=== PATIENT | female | born 1975 | race American Indian/Alaskan Native ===

== ENCOUNTER 2017-03-03 11:06 | Emergency (ER) | payer OTHER ==
[2017-03-03] MEDS ORDERED: TENORMIN PO ONE (11:37)
[2017-03-03] MEDS ORDERED: HCTZ PO ONE (11:37)
[2017-03-03] MEDS ORDERED: ZESTRIL PO ONE (11:37)
--- NOTE | 2017-03-03 12:10 | Emergency Department Report ---
Entered by LARRY ESPINOZA, acting as scribe for SHERRI HEARN PA. Chief Complaint: Sore Throat Stated Complaint: SORE THROAT,CHILLS,BODY ACHES Time Seen by Provider: 03/03/17 11:26 - HPI History of Present Illness: Pt c/o a sore throat for 6 days. Rates pain an 8/10 in severity. Took DayQuil, NyQuil, and [place] day and night with no relief. Reports cough. Reports nausea. Reports chills and myalgias. Denies vomiting. Pt states she had facial pain and headache 4 days ago. Notes her tonsils was swollen 3 weeks ago. PMHx of asthma, diabetes (anxiety induced), HPV, and HTN Notes non-compliancy to HTN medication for 2 weeks. BP is currently 171/112 in triage. PCP is at [facility] - ROS Review of Systems: All systems are negative unless stated in the HPI above. - Exam Vital Signs: Vital Signs 03/03/17 11:13 Temperature 98.1 F Pulse Rate 85 Respiratory 20 Rate Blood Pressure 171/112 O2 Sat by Pulse 98 Oximetry Physical Exam: GENERAL: Patient is alert and oriented x 3. No apparent distress, normal gait, atraumatic. MOUTH:Mouth is well hydrated and without lesions. Mucous membranes are moist. Uvula midline. Tongue not elevated. Posterior pharynx clear, no exudate or lesions. Tonsils are not erythematous or swollen. Patent airway. NECK: Supple. Non edematous, no carotid bruits. No lymphadenopathy or thyromegaly. LUNGS: Symmetrical with respiration. No wheezing, rales or crackles, CTAB. HEART: Regular rate and rhythm with normal S1/S2 present. No murmurs, rubs, or gallops. MSE screening note: Focused history and physical exam performed. Due to findings the following was ordered: ED Medical Decision Making - Medical Decision Making Patient seen by provider in triage area. Blood work sent in for patient. ED Disposition for MSE Condition: Stable This documentation as recorded by the scribe,LARRY ESPINOZA,accurately reflects the service I personally performed and the decisions made by me, SHERRI HEARN PA.
[2017-03-03] MEDS ORDERED: LIDOCAINE VISCOUS 2% PO ONE (21:28)
[2017-03-03] MEDS ORDERED: TYLENOL PO ONE (21:29)
--- NOTE | 2017-03-03 23:01 | Emergency Department Report ---
HPI - General Chief Complaint: Sore Throat Time Seen by Provider: 03/03/17 11:37 - HPI HPI: The patient's 41-year-old female presents for evaluation of pain. The patient reports throat pain for the past 6 days, burning and scratchy in quality, moderate to severe, exacerbated with swallowing. She also reports associated nonproductive cough and runny nose. The patient denies dyspnea, neck stiffness , dysphagia, stridor, drooling, difficulty tolerating secretions, dysphonia, hoarseness of voice, abdominal pain. ED Past Medical Hx - Past Medical History Previous Medical History?: Yes Hx Hypertension: Yes Hx Diabetes: Yes Hx Asthma: Yes (anxiety induced) Additional medical history: HPV - Surgical History Past Surgical History?: Yes Additional Surgical History: 3 c-sections; ; umbilical hernia repair - Social History Smoking Status: Former Smoker Substance Use Type: Alcohol, Prescribed - Medications Home Medications: Home Medications Medication Instructions Recorded Confirmed Last Taken Type Acetaminophen/Codeine 1 tab PO Q6H PRN #16 tab 10/31/14 08/12/15 Unknown Rx [Acetaminophen-Codeine #3 TAB] Fluconazole [Diflucan] 150 mg PO ONCE #1 tablet 10/31/14 08/12/15 Unknown Rx Promethazine Dm [Phenergan Dm 5 ml PO Q6H PRN #120 ml 10/31/14 08/12/15 Unknown Rx 6.25/15 mg 5 ml] Sulfamethoxazole/Trimethoprim 1 each PO Q12H #20 tablet 10/31/14 08/12/15 Unknown Rx [Bactrim Ds] Albuterol Sulfate [Albuterol 0.63% 0.63 mg IH Q4H PRN #25 neb 08/01/15 08/12/15 Unknown Rx NEBS] Albuterol Sulfate [Ventolin HFA] 2 puff IH Q4H PRN #1 hfa.aer.ad 08/01/15 Unknown Rx Ciprofloxacin HCl [Ciprofloxacin 500 mg PO Q12H #14 tab 08/01/15 08/12/15 Unknown Rx TAB] Butalb/Acetaminophen/Caffeine 1 cap PO Q6HR PRN #14 cap 08/12/15 Unknown Rx [Fioricet 50-300-40 mg CAP] Amoxicillin/K Clav Tab [Augmentin 1 tab PO BID #10 tab 05/29/17 Unknown Rx 875 mg] Benzonatate [Tessalon Perles] 100 mg PO Q8HR #14 capsule 03/03/17 Unknown Rx Phenylephrine/Dm/Acetaminop/GG 20 ml PO Q4HR PRN #180 liquid 03/03/17 Unknown Rx [Mucinex Itvd-Ndl-Ruvfzymrqf Lq] ED Review of Systems ROS: Stated complaint: SORE THROAT,CHILLS,BODY ACHES Other details as noted in HPI Constitutional: denies: fever ENT: reports throat or neck pain Respiratory: reports cough denies: shortness of breath Cardiovascular: denies: chest pain Endocrine: denies unexplained weight loss or gain Gastrointestinal: denies: abdominal pain, nausea Genitourinary: denies: dysuria Musculoskeletal: denies: leg swelling Skin: denies: rash Neurological: denies: headache Hematological/Lymphatic: denies: easy bleeding or easy bruising Psych: denies sadness or hopelessness Physical Exam - Physical Exam Vital Signs: Vital Signs 03/03/17 03/03/17 03/03/17 11:13 11:57 11:58 Temperature 98.1 F Pulse Rate 85 88 85 Respiratory 20 Rate Blood Pressure 171/112 171/112 171/112 Blood Pressure [Right] O2 Sat by Pulse 98 Oximetry 03/03/17 03/03/17 16:10 17:40 Temperature 98.2 F Pulse Rate 68 65 Respiratory 18 18 Rate Blood Pressure 177/111 Blood Pressure 177/106 [Right] O2 Sat by Pulse 99 98 Oximetry Physical Exam: General: well-nourished, well-developed, no acute distress Head: Normocephalic, atraumatic Eyes: normal sclera ENT: Mild tonsillar erythema present, cobblestoning of the posterior oropharynx present, no tonsillar swelling, exudates, or deviation, no uvula or soft palate deviation, no bulging of the lateral oropharyngeal knox, Mucous membranes are pink and moist Neck: trachea midline, neck supple, No neck stiffness, no cervical adenopathy Respiratory: Breath sounds equal bilaterally, no wheezing, rales, or rhonchi Cardio: S1 and S2 present, no murmurs, rubs, gallops, capillary refill is brisk Abdomen: Normoactive bowel sounds, soft abdomen, no rigidity, no guarding or rebound tenderness Musc: No pitting edema Skin: No rash Neuro: no facial drooping, normal speech Psych: Normal affect ED Course Vital Signs 03/03/17 03/03/17 03/03/17 11:13 11:57 11:58 Temperature 98.1 F Pulse Rate 85 88 85 Respiratory 20 Rate Blood Pressure 171/112 171/112 171/112 Blood Pressure [Right] O2 Sat by Pulse 98 Oximetry 03/03/17 03/03/17 16:10 17:40 Temperature 98.2 F Pulse Rate 68 65 Respiratory 18 18 Rate Blood Pressure 177/111 Blood Pressure 177/106 [Right] O2 Sat by Pulse 99 98 Oximetry ED Medical Decision Making - Medical Decision Making The patient was seen and examined by myself. The patient is placed on a alarm security or surveillance monitor and continuous pulse ox. On initial evaluation, the patient was found to be in no distress. Evaluation orders were placed. The patient is given viscous lidocaine and Motrin for her pain. Rapid strep test is negative. The patient was reevaluated and reported that their symptoms were markedly improved. The patient is stable for discharge with outpatient follow-up. The patient is given follow-up and return instructions. The patient expressed understanding and agreed with the plan. The patient is discharged in stable condition. Critical care attestation.: If time is entered above; I have spent that time in minutes in the direct care of this critically ill patient, excluding procedure time. ED Disposition Clinical Impression: Acute pharyngitis, unspecified, Upper respiratory infection, acute, Acute viral syndrome Disposition: DISCHARGED TO HOME OR SELFCARE Is pt being admited?: No Does the pt Need Aspirin: No Condition: Stable Instructions: Pharyngitis (ED), Hypertension (ED) Prescriptions: Amoxicillin/K Clav Tab [Augmentin 875 mg] 1 tab PO BID #10 tab Benzonatate [Tessalon Perles] 100 mg PO Q8HR #14 capsule Phenylephrine/Dm/Acetaminop/GG [Mucinex Aliy-Grr-Imslakuiyl Lq] 20 ml PO Q4HR PRN #180 liquid PRN Reason: cough and sore throat Referrals: PRIMARY CARE, [Primary Care Provider] - 3-5 Days Time of Disposition: 22:53
[2017-03-03 23:15] VITALS: BP 152/92
== END 2017-03-03 23:13 | disposition home or self-care (01) ==
LOC: ED 11:06
DX: J06.9 Acute upper respiratory infection, unspecified (principal); J02.9 Acute pharyngitis, unspecified; B34.9 Viral infection, unspecified; I10 Essential (primary) hypertension; E11.9 Type 2 diabetes mellitus without complications; J45.909 Unspecified asthma, uncomplicated; Z87.891 Personal history of nicotine dependence
CPT/HCPCS: 87116; 87430; 99283

== ENCOUNTER 2017-05-05 13:22 | Emergency (ER) | payer OTHER ==
--- NOTE | 2017-05-05 14:59 | Emergency Department Report ---
Entered by SACHA DUBON, acting as scribe for JARRELL KRISHNAN NP. Chief Complaint: Neck Pain/Injury Stated Complaint: LT SIDE NECK/ARM PAIN Time Seen by Provider: 05/05/17 14:49 - HPI History of Present Illness: 41 y/o female with Hx of HTN, asthma and DM, presents with 8/10, constant, achy left sided neck pain that radiates down left arm that started 2 days ago. Sx include chest pain worsened by movement and SOB but pt denies cough. - ROS Review of Systems: +left side neck pain +SOB +chest pain -cough - Exam Vital Signs: Vital Signs 05/05/17 14:49 Temperature 97.9 F Pulse Rate 67 Respiratory 18 Rate Blood Pressure 181/108 O2 Sat by Pulse 100 Oximetry Physical Exam: obese pt looks well, non-toxic. chest wall ttp MSE screening note: Focused history and physical exam performed. Due to findings the following was ordered: ekg, xr, labs ED Disposition for MSE Condition: Stable This documentation as recorded by the scribe,SACHA DUBON,accurately reflects the service I personally performed and the decisions made by EULOGIO yoon TRACY M, NP.
[2017-05-05 15:22] LABS: Basophils % (Auto) 0.7 % (0.0-1.8); Eosinophils % (Auto) 1.7 % (0.0-4.3); Hematocrit 39.2 % (30.3-42.9); Hemoglobin 12.5 gm/dl (10.1-14.3); Mean Corpuscular HGB Conc 32 % (30-34); Mean Corpuscular Hemoglobin 27 pg (28-32); Mean Corpuscular Volume 86 fl (79-97); Platelet Count 266 K/mm3 (140-440); Red Blood Count 4.58 M/mm3 (3.65-5.03); Red Cell Distribution Width 13.7 % (13.2-15.2); White Blood Count 3.2 K/mm3 (4.5-11.0)
[2017-05-05 16:56] LABS: Bilirubin,Urine NEG (Negative); Blood,Urine NEG (Negative); Ketones,Urine NEG (Negative); Leukocyte Esterase,Urine NEG (Negative); Mucus,Urine FEW /HPF; Nitrite,Urine NEG (Negative); Protein,Urine <15 mg/dL mg/dL (Negative); Urobilinogen,Urine < 2.0 mg/dL (<2.0)
[2017-05-05 17:01] LABS: RBC,Urine < 1.0 /HPF (0.0-6.0); WBC,Urine < 1.0 /HPF (0.0-6.0)
[2017-05-05 17:34] LABS: Creatine Kinase 71 units/L (30-135)
[2017-05-05 17:35] LABS: Alanine Aminotransferase 10 units/L (7-56); Albumin 4.2 g/dL (3.9-5); Albumin/Globulin Ratio 1.1 %; Alkaline Phosphatase 69 units/L (35-129); Anion Gap 21 mmol/L; BUN/Creatinine Ratio 9.09; Blood Urea Nitrogen 10 mg/dL (7-17); Calcium 9.3 mg/dL (8.4-10.2); Carbon Dioxide 25 mmol/L (22-30); Chloride 97.2 mmol/L (98-107); Glucose 86 mg/dL (65-100); Potassium 3.8 mmol/L (3.6-5.0); Sodium 139 mmol/L (137-145); Total Protein 7.9 g/dL (6.3-8.2)
[2017-05-05] MEDS ORDERED: TYLENOL PO ONE (22:41)
[2017-05-05] MEDS ORDERED: TYLENOL ONE (22:41)
--- NOTE | 2017-05-05 23:57 | Emergency Department Report ---
HPI - General Chief Complaint: Neck Pain/Injury Time Seen by Provider: 05/05/17 22:49 - HPI HPI: The patient is a 41-year-old female presents for evaluation of neck and shoulder pain. The patient reports left-sided neck and shoulder pain for the past 2 days, 8/10 in severity, sharp in quality, radiating from the left lateral leg to the right medial shoulder, worsened with turning of the neck or movement of the left arm at the shoulder joint. The patient denies trauma to the neck or left shoulder. ED Past Medical Hx - Past Medical History Hx Hypertension: Yes Hx Diabetes: Yes Hx Asthma: Yes (anxiety induced) Additional medical history: HPV - Surgical History Additional Surgical History: 3 c-sections; ; umbilical hernia repair - Social History Smoking Status: Never Smoker Substance Use Type: None - Medications Home Medications: Home Medications Medication Instructions Recorded Confirmed Last Taken Type Acetaminophen/Codeine 1 tab PO Q6H PRN #16 tab 10/31/14 08/12/15 Unknown Rx [Acetaminophen-Codeine #3 TAB] Fluconazole [Diflucan] 150 mg PO ONCE #1 tablet 10/31/14 08/12/15 Unknown Rx Promethazine Dm [Phenergan Dm 5 ml PO Q6H PRN #120 ml 10/31/14 08/12/15 Unknown Rx 6.25/15 mg 5 ml] Sulfamethoxazole/Trimethoprim 1 each PO Q12H #20 tablet 10/31/14 08/12/15 Unknown Rx [Bactrim Ds] Albuterol Sulfate [Albuterol 0.63% 0.63 mg IH Q4H PRN #25 neb 08/01/15 08/12/15 Unknown Rx NEBS] Albuterol Sulfate [Ventolin HFA] 2 puff IH Q4H PRN #1 hfa.aer.ad 08/01/15 Unknown Rx Ciprofloxacin HCl [Ciprofloxacin 500 mg PO Q12H #14 tab 08/01/15 08/12/15 Unknown Rx TAB] Butalb/Acetaminophen/Caffeine 1 cap PO Q6HR PRN #14 cap 08/12/15 Unknown Rx [Fioricet 50-300-40 mg CAP] Amoxicillin/K Clav Tab [Augmentin 1 tab PO BID #10 tab 03/03/17 Unknown Rx 875 mg] Benzonatate [Tessalon Perles] 100 mg PO Q8HR #14 capsule 03/03/17 Unknown Rx Phenylephrine/Dm/Acetaminop/GG 20 ml PO Q4HR PRN #180 liquid 03/03/17 Unknown Rx [Mucinex Ehav-Uff-Fdhsrutvta Lq] Cyclobenzaprine HCl [Flexeril 5 MG 5 mg PO Q8HR PRN #15 tab 05/06/17 Unknown Rx TAB] traMADol [Ultram 50 MG tab] 50 mg PO Q6HR PRN #15 tablet 05/06/17 Unknown Rx ED Review of Systems ROS: Stated complaint: LT SIDE NECK/ARM PAIN Other details as noted in HPI Constitutional: denies: fever ENT: denies: throat pain; reports neck pain Respiratory: denies: cough, shortness of breath Cardiovascular: denies: chest pain Endocrine: denies unexplained weight loss or gain Gastrointestinal: denies: abdominal pain, nausea Genitourinary: denies: dysuria Musculoskeletal: reports shoulder pian denies: leg swelling Skin: denies: rash Neurological: denies: headache Hematological/Lymphatic: denies: easy bleeding or easy bruising Psych: denies sadness or hopelessness Physical Exam - Physical Exam Vital Signs: Vital Signs 05/05/17 05/05/17 14:49 22:30 Temperature 97.9 F 98.3 F Pulse Rate 67 64 Respiratory 18 18 Rate Blood Pressure 181/108 170/111 O2 Sat by Pulse 100 100 Oximetry Physical Exam: General: well-nourished, well-developed, no acute distress Head: Normocephalic, atraumatic Eyes: normal sclera ENT: Mucous membranes are pink and moist Neck: Left sternocleidomastoid tenderness to palpation present, pain elicited with turning of the neck to the left, Left trapezius tenderness to palpation, trachea midline, neck supple, No neck stiffness, no midline cervical spinous process tenderness to palpation Respiratory: Breath sounds equal bilaterally, no wheezing, rales, or rhonchi Cardio: S1 and S2 present, no murmurs, rubs, gallops, capillary refill is brisk Abdomen: Normoactive bowel sounds, soft abdomen, no rigidity, no guarding or rebound tenderness Musc: No pitting edema Skin: No rash Neuro: no facial drooping, normal speech Psych: Normal affect ED Course Vital Signs 05/05/17 05/05/17 14:49 22:30 Temperature 97.9 F 98.3 F Pulse Rate 67 64 Respiratory 18 18 Rate Blood Pressure 181/108 170/111 O2 Sat by Pulse 100 100 Oximetry ED Medical Decision Making - Lab Data Result diagrams: 05/05/17 15:13 05/05/17 15:13 - Medical Decision Making The patient was seen and examined by myself. The patient is placed on a night monitor and continuous pulse ox. On initial evaluation, the patient was found to be in no distress. Evaluation orders were placed. The patient is given IM dose of Toradol for pain. The patient was reevaluated and reported that their symptoms were markedly improved. The patient is stable for discharge with outpatient follow-up. The patient is given follow-up and return instructions. The patient expressed understanding and agreed with the plan. The patient is discharged in stable condition. Critical care attestation.: If time is entered above; I have spent that time in minutes in the direct care of this critically ill patient, excluding procedure time. ED Disposition Clinical Impression: Acute neck pain Neck muscle strain Qualifiers: Encounter type: initial encounter Qualified Code(s): S16.1XXA - Strain of muscle, fascia and tendon at neck level, initial encounter Shoulder pain, acute Qualifiers: Laterality: left Qualified Code(s): M25.512 - Pain in left shoulder Disposition: DC-01 TO HOME OR SELFCARE Is pt being admited?: No Does the pt Need Aspirin: No Condition: Stable Instructions: Muscle Strain (ED), Spasmodic Torticollis (ED), Musculoskeletal Pain (ED) Referrals: PRIMARY CARE, [Primary Care Provider] - 3-5 Days Time of Disposition: 23:47
[2017-05-06 00:42] VITALS: BP 152/99
[2017-05-06] MEDS ORDERED: BENADRYL PO NR (01:00)
[2017-05-06] MEDS: TORADOL IM ONE (01:04)
--- NOTE | 2017-05-06 08:38 | XRay Report ---
CHEST 2 VIEWS INDICATION: Chest pain. COMPARISON: 11/25/2012. FINDINGS: Frontal and lateral chest radiographs demonstrate poorer inspiration with mild exaggerated cardiomediastinal silhouette and somewhat crowded lung markings centrally and toward the bases. No pleural effusions or CHF. Mild thoracic spondylosis. CONCLUSION: Hypoinflation without definite acute disease, as described. Please correlate. Thank you for the opportunity to participate in this patient's care.
== END 2017-05-06 02:28 | disposition home or self-care (01) ==
LOC: ED 13:22
DX: S16.1XXA Strain of muscle, fascia and tendon at neck level, initial encounter (principal); M54.2 Cervicalgia; M25.512 Pain in left shoulder; I10 Essential (primary) hypertension; E11.9 Type 2 diabetes mellitus without complications; X58.XXXA Exposure to other specified factors, initial encounter; Y93.9 Activity, unspecified; Y92.9 Unspecified place or not applicable; Y99.9 Unspecified external cause status
CPT/HCPCS: 36415; 71020; 80053; 81001; 82550; 84484; 84703; 85025; 93005; 93010; 96372; 99284; J1885

== ENCOUNTER 2017-11-25 12:42 | Outpatient (CLI) | payer BC ==
--- NOTE | 2017-11-26 10:53 | Mammography Report ---
BILATERAL DIGITAL SCREENING MAMMOGRAM with CAD: 11/25/17 12:42:00 CLINICAL: Routine screening. COMPARISON:None available. FINDINGS: The breasts are almost entirely fatty.A few bilateral benign calcifications. No mass, architectural distortion or suspicious calcifications. IMPRESSION: No mammographic evidence of malignancy. BI-RADS CATEGORY: 2 -- Benign RECOMMENDATION: Routine mammographic screening in one year. COMMENT: Patient follow-up letters are generated by our [employer] application.
== END 2017-11-25 12:43 | disposition home or self-care (01) ==
LOC: MAMMO 12:42
PROVIDERS: ATTEND Internal Medicine
DX: Z12.31 Encounter for screening mammogram for malignant neoplasm of breast (principal)
CPT/HCPCS: 77067

== ENCOUNTER 2018-02-28 16:34 | Emergency (ER) | payer BC ==
[2018-02-28 16:45] VITALS: BP 178/115
== END 2018-02-28 22:30 | disposition left against medical advice (07) ==
LOC: ED 16:34
DX: M79.672 Pain in left foot (principal); F41.9 Anxiety disorder, unspecified; E11.9 Type 2 diabetes mellitus without complications; I10 Essential (primary) hypertension; Z53.21 Procedure and treatment not carried out due to patient leaving prior to being seen by health care provider

== ENCOUNTER 2018-03-01 10:40 | Emergency (ER) | payer BC ==
--- NOTE | 2018-03-01 12:30 | Emergency Department Report ---
Blank Doc - Documentation Documentation: 42yo female came in with left foot and ankle pain after hitting a chair P: x ray of left foot and ankle
[2018-03-01] MEDS ORDERED: NORCO 7.5/325 PO ONE (12:31)
[2018-03-01] MEDS ORDERED: CATAPRES PO ONE (12:31)
[2018-03-01] MEDS ORDERED: MOTRIN ONE (12:37)
[2018-03-01] MEDS ORDERED: MOTRIN PO ONE (12:38)
--- NOTE | 2018-03-01 13:14 | Emergency Department Report ---
ED Lower Extremity HPI - General Chief Complaint: Extremity Injury, Lower Stated Complaint: LEFT FOOT TOE PAIN Time Seen by Provider: 03/01/18 12:15 Source: patient Mode of arrival: Ambulatory Limitations: No Limitations - History of Present Illness Initial Comments: This is a 42-year-old female nontoxic, well nourished in appearance, no acute signs of distress presents to the ED with c/o of left ankle pain and swelling x3 days. Patient stated she has been dancing with daughter and accidentally hit her ankle against the car. Patient denies any joint redness, joint swelling, fever, chills, nausea, vomiting, chest pain or shortness breath. Patient denies abnormal or decreased gait. Patient denies any allergies. PMH includes HTN which patient stated missed her medication that past 2 days. Patient stated she is has medication at home and will start tonight again. MD Complaint: ankle injury -: days(s) (3) Injury: Ankle: Left Type of Injury: blunt Place: home Severity: mild Severity scale (0 -10): 8 Improves With: immobilization Worsens With: movement, palpation Associated Symptoms: swelling, able to partially bear weight, ambulatory. denies: snap/pop sensation, numbness, tingling, unable to bear weight - Related Data Previous Rx's Medication Instructions Recorded Last Taken Type Acetaminophen/Codeine 1 tab PO Q6H PRN #16 tab 10/31/14 Unknown Rx [Acetaminophen-Codeine #3 TAB] Fluconazole [Diflucan] 150 mg PO ONCE #1 tablet 10/31/14 Unknown Rx Promethazine Dm [Phenergan Dm 5 ml PO Q6H PRN #120 ml 10/31/14 Unknown Rx 6.25/15 mg 5 ml] Sulfamethoxazole/Trimethoprim 1 each PO Q12H #20 tablet 10/31/14 Unknown Rx [Bactrim Ds] Albuterol Sulfate [Albuterol 0.63% 0.63 mg IH Q4H PRN #25 neb 08/01/15 Unknown Rx NEBS] Albuterol Sulfate [Ventolin HFA] 2 puff IH Q4H PRN #1 hfa.aer.ad 08/01/15 Unknown Rx Ciprofloxacin HCl [Ciprofloxacin 500 mg PO Q12H #14 tab 08/01/15 Unknown Rx TAB] Butalb/Acetaminophen/Caffeine 1 cap PO Q6HR PRN #14 cap 08/12/15 Unknown Rx [Fioricet 50-300-40 mg CAP] Amoxicillin/K Clav Tab [Augmentin 1 tab PO BID #10 tab 03/03/17 Unknown Rx 875 mg] Benzonatate [Tessalon Perles] 100 mg PO Q8HR #14 capsule 03/03/17 Unknown Rx Phenylephrine/Dm/Acetaminop/GG 20 ml PO Q4HR PRN #180 liquid 03/03/17 Unknown Rx [Mucinex Glcv-Yrt-Pfbajjpuyg Lq] Cyclobenzaprine HCl [Flexeril 5 MG 5 mg PO Q8HR PRN #15 tab 05/06/17 Unknown Rx TAB] traMADol [Ultram 50 MG tab] 50 mg PO Q6HR PRN #15 tablet 05/06/17 Unknown Rx Ibuprofen [Motrin] 600 mg PO Q8H PRN #30 tablet 03/01/18 Unknown Rx Allergies Allergy/AdvReac Type Severity Reaction Status Date / Time naproxen Allergy Unknown Verified 03/01/18 10:54 ED Review of Systems ROS: Stated complaint: LEFT FOOT TOE PAIN Other details as noted in HPI Constitutional: denies: chills, fever Eyes: denies: eye pain, eye discharge, vision change ENT: denies: ear pain, throat pain Respiratory: denies: cough, shortness of breath, wheezing Cardiovascular: denies: chest pain, palpitations Endocrine: no symptoms reported Gastrointestinal: denies: abdominal pain, nausea, diarrhea Genitourinary: denies: urgency, dysuria, discharge Musculoskeletal: arthralgia. denies: back pain, joint swelling Skin: denies: rash, lesions Neurological: denies: headache, weakness, paresthesias Psychiatric: denies: anxiety, depression Hematological/Lymphatic: denies: easy bleeding, easy bruising ED Past Medical Hx - Past Medical History Hx Hypertension: Yes Hx Diabetes: Yes Hx Asthma: Yes (anxiety induced) Additional medical history: HPV - Surgical History Additional Surgical History: 3 c-sections; ; umbilical hernia repair - Social History Smoking Status: Never Smoker Substance Use Type: None - Medications Home Medications: Home Medications Medication Instructions Recorded Confirmed Last Taken Type Acetaminophen/Codeine 1 tab PO Q6H PRN #16 tab 10/31/14 08/12/15 Unknown Rx [Acetaminophen-Codeine #3 TAB] Fluconazole [Diflucan] 150 mg PO ONCE #1 tablet 10/31/14 08/12/15 Unknown Rx Promethazine Dm [Phenergan Dm 5 ml PO Q6H PRN #120 ml 10/31/14 08/12/15 Unknown Rx 6.25/15 mg 5 ml] Sulfamethoxazole/Trimethoprim 1 each PO Q12H #20 tablet 10/31/14 08/12/15 Unknown Rx [Bactrim Ds] Albuterol Sulfate [Albuterol 0.63% 0.63 mg IH Q4H PRN #25 neb 08/01/15 08/12/15 Unknown Rx NEBS] Albuterol Sulfate [Ventolin HFA] 2 puff IH Q4H PRN #1 hfa.aer.ad 08/01/15 Unknown Rx Ciprofloxacin HCl [Ciprofloxacin 500 mg PO Q12H #14 tab 08/01/15 08/12/15 Unknown Rx TAB] Butalb/Acetaminophen/Caffeine 1 cap PO Q6HR PRN #14 cap 08/12/15 Unknown Rx [Fioricet 50-300-40 mg CAP] Amoxicillin/K Clav Tab [Augmentin 1 tab PO BID #10 tab 03/03/17 Unknown Rx 875 mg] Benzonatate [Tessalon Perles] 100 mg PO Q8HR #14 capsule 03/03/17 Unknown Rx Phenylephrine/Dm/Acetaminop/GG 20 ml PO Q4HR PRN #180 liquid 03/03/17 Unknown Rx [Mucinex Sdfk-Lfg-Tgtbegaytj Lq] Cyclobenzaprine HCl [Flexeril 5 MG 5 mg PO Q8HR PRN #15 tab 05/06/17 Unknown Rx TAB] traMADol [Ultram 50 MG tab] 50 mg PO Q6HR PRN #15 tablet 05/06/17 Unknown Rx Ibuprofen [Motrin] 600 mg PO Q8H PRN #30 tablet 03/01/18 Unknown Rx ED Physical Exam - General Limitations: No Limitations General appearance: alert, in no apparent distress - Head Head exam: Present: atraumatic, normocephalic - Eye Eye exam: Present: normal appearance Pupils: Present: normal accommodation - ENT ENT exam: Present: normal exam, mucous membranes moist - Neck Neck exam: Present: normal inspection, full ROM. Absent: tenderness, meningismus, lymphadenopathy - Respiratory Respiratory exam: Present: normal lung sounds bilaterally. Absent: respiratory distress, wheezes, rales, rhonchi, stridor, chest wall tenderness, accessory muscle use, decreased breath sounds, prolonged expiratory - Cardiovascular Cardiovascular Exam: Present: regular rate, normal rhythm, normal heart sounds. Absent: bradycardia, tachycardia, irregular rhythm, systolic murmur, diastolic murmur, rubs, gallop - GI/Abdominal GI/Abdominal exam: Present: soft, normal bowel sounds. Absent: distended, tenderness, guarding, rebound, rigid, diminished bowel sounds - Rectal Rectal exam: Present: deferred - Extremities Exam Extremities exam: Present: normal inspection, full ROM, tenderness, normal capillary refill. Absent: pedal edema, joint swelling, calf tenderness - Expanded Lower Extremity Exam Left Hip exam: Present: normal inspection, full ROM. Absent: tenderness, swelling Upper Leg exam: Present: normal inspection, full ROM. Absent: tenderness, swelling Knee exam: Present: normal inspection, full ROM. Absent: tenderness, swelling Lower Leg exam: Present: normal inspection, full ROM. Absent: tenderness, swelling Ankle exam: Present: normal inspection, full ROM, tenderness, swelling. Absent : abrasion, laceration, ecchymosis, deformity, crepidus, dislocation, erythema, anterior draw sign Foot/Toe exam: Present: normal inspection, full ROM. Absent: tenderness, swelling, abrasion, laceration, ecchymosis, deformity, crepidus, dislocation, erythema, amputation, puncture wound, foreign body, calcaneal tenderness, tenderness at base of 5th metatarsal, nail avulsion, subungual hematoma Neuro vascular tendon exam: Present: no vascular compromise. Absent: pulse deficit, abnormal cap refill, motor deficit, sensory deficit, tendon deficit, extremity cold to touch, pallor, abnormal 2-point discrimination, decreased fine /light touch, foot drop, peroneal nerve deficit, significant pain with passive ROM of distal joint Gait: Positive: observed and limited by pain - Back Exam Back exam: Present: normal inspection, full ROM - Neurological Exam Neurological exam: Present: alert, oriented X3, normal gait - Psychiatric Psychiatric exam: Present: normal affect, normal mood - Skin Skin exam: Present: warm, dry, intact, normal color. Absent: rash ED Course Vital Signs 03/01/18 03/01/18 10:54 12:42 Temperature 98.8 F Pulse Rate 80 80 Respiratory 18 Rate Blood Pressure 204/113 204/113 O2 Sat by Pulse 98 Oximetry - Reevaluation(s) Reevaluation #1: 03/01/18 13:18 Patient is speaking in full sentences with no signs of distress noted. - Consultations Consultation #1: 03/01/18 13:19 Patient has been consulted with Dr. Salazar about patient history, physical exam , and Xray and examined and screened patient and agrees to ED plan of care and discharge plan of care. ED Lower Extremity MDM - Medical Decision Making This is a 42-year-old female that presents with left ankle sprain and HTN. Patient is stable and was examined by me. I referred patient to an orthopedic doctor for further evaluation for possible MRI. X-ray has been obtained and dictated by the radiologist. Patient is notified of the x-ray report with noted by the patient. Patient does have normal gait with no tenderness and no joint swelling. No ecchymosis. no joint redness or swelling. Not warm to touch. No signs of cellulites present. Patient received Ankle stirrup in the ED. Patient was instructed to RICE therapy. Patient received Motrin for pain. Patient also is treated with Catapress from HTN and blood pressure decreased before discharge. Patient was instructed to continue taking her daily dose of blood pressure medication. Patient is discharged with Motrin. At time of discharge, the patient does not seem toxic or ill in appearance. No acute signs of distress noted. Patient agrees to discharge treatment plan of care. No further questions noted by the patient. Critical care attestation.: If time is entered above; I have spent that time in minutes in the direct care of this critically ill patient, excluding procedure time. ED Disposition Clinical Impression: Left ankle sprain Qualifiers: Encounter type: initial encounter Involved ligament of ankle: unspecified ligament Qualified Code(s): S93.402A - Sprain of unspecified ligament of left ankle, initial encounter Hypertension Qualifiers: Hypertension type: unspecified Qualified Code(s): I10 - Essential (primary) hypertension Disposition: - TO HOME OR SELFCARE Is pt being admited?: No Does the pt Need Aspirin: No Condition: Stable Instructions: Hypertension (ED), Ankle Sprain (ED), Ankle Stirrup Splint (ED), RICE Therapy (ED), Ibuprofen (By mouth) Additional Instructions: Follow-up with a orthopedic doctor in 3-5 days or if symptoms worsen and continue return to emergency room as soon as possible. Prescriptions: Ibuprofen [Motrin] 600 mg PO Q8H PRN #30 tablet PRN Reason: Pain Referrals: PRIMARY CARE, [Primary Care Provider] - 3-5 Days ALYSSA HALL MD [Staff Physician] - 3-5 Days FRANCES YANEZ MD [Staff Physician] - 3-5 Days [facility] [Outside] - 3-5 Days Forms: Work/School Release Form(ED)
--- NOTE | 2018-03-01 14:23 | XRay Report ---
FINAL REPORT PROCEDURE: XR ANKLE 3+V LT TECHNIQUE: Left ankle, three views HISTORY: foot pain after hitting the chair COMPARISON: No prior studies are available for comparison. FINDINGS: No fracture or dislocation is seen. No focal osseous lesions. Ankle mortise and talar dome are intact. IMPRESSION: No acute osseous abnormality is identified
--- NOTE | 2018-03-01 14:26 | XRay Report ---
FINAL REPORT PROCEDURE: XR FOOT 3+V LT TECHNIQUE: Left foot, three views HISTORY: ankle pain after hitting a chair COMPARISON: No prior studies are available for comparison. FINDINGS: No acute fracture or dislocation is seen. No focal osseous lesion. IMPRESSION: No acute osseous abnormality is identified
[2018-03-01 15:09] VITALS: BP 152/106
== END 2018-03-01 15:13 | disposition home or self-care (01) ==
LOC: ED 10:40
DX: S93.402A Sprain of unspecified ligament of left ankle, initial encounter (principal); I10 Essential (primary) hypertension; E11.9 Type 2 diabetes mellitus without complications; F41.9 Anxiety disorder, unspecified; Z88.8 Allergy status to other drugs, medicaments and biological substances; W22.8XXA Striking against or struck by other objects, initial encounter; Y93.41 Activity, dancing; Y99.8 Other external cause status; Y92.099 Unspecified place in other non-institutional residence as the place of occurrence of the external cause

== ENCOUNTER 2018-07-12 21:31 | Emergency (ER) | payer BC ==
[2018-07-12 22:22] LABS: Basophils % (Auto) 0.3 % (0.0-1.8); Eosinophils % (Auto) 0.1 % (0.0-4.3); Hemoglobin 12.3 gm/dl (10.1-14.3); Lymphocytes # (Auto) 0.6 K/mm3 (1.2-5.4); Lymphocytes % (Auto) 22.2 % (13.4-35.0); Mean Corpuscular HGB Conc 32 % (30-34); Mean Corpuscular Hemoglobin 28 pg (28-32); Mean Corpuscular Volume 86 fl (79-97); Monocytes # (Auto) 0.1 K/mm3 (0.0-0.8); Monocytes % (Auto) 4.2 % (0.0-7.3); Platelet Count 249 K/mm3 (140-440); Red Blood Count 4.43 M/mm3 (3.65-5.03); Red Cell Distribution Width 13.9 % (13.2-15.2)
[2018-07-12 22:52] LABS: Albumin 4.3 g/dL (3.9-5); Calcium 9.4 mg/dL (8.4-10.2)
[2018-07-12] MEDS ORDERED: ZOFRAN IV ONE (23:54)
[2018-07-12] MEDS ORDERED: NACL 0.9% 1000 ML 1,000 ML IV ONE (23:54)
[2018-07-12] MEDS ORDERED: DILAUDID IV ONE (23:54)
--- NOTE | 2018-07-12 23:56 | Emergency Department Report ---
ED Abdominal Pain HPI - General Chief Complaint: Abdominal Pain Stated Complaint: LEFT SIDE PAIN/NUMBNESS Time Seen by Provider: 07/12/18 23:17 Source: patient Mode of arrival: Ambulatory Limitations: No Limitations - History of Present Illness Initial Comments: Patient c/o Left Flank Pain which started few days ago. Patient is a poor historian. Complaint: abdominal pain, flank pain -: Gradual Location: L flank Radiation: none Migration to: no migration Severity: severe Severity scale (0 -10): 8 Quality: sharp Consistency: constant Improves With: nothing Worsens With: nothing Associated Symptoms: denies other symptoms - Related Data Home Medications Medication Instructions Recorded Confirmed Last Taken Atenolol 100 mg PO DAILY 06/04/18 06/04/18 1 Day Ago ~06/03/18 hydroCHLOROthiazide 25 mg PO DAILY 06/04/18 06/04/18 06/03/18 Previous Rx's Medication Instructions Recorded Last Taken Type Acetaminophen/Codeine [Tylenol 1 tab PO Q6H PRN #16 tab 10/31/14 Unknown Rx /Codeine # 3 tab] Albuterol Sulfate [Albuterol 0.63% 0.63 mg IH Q4H PRN #25 neb 08/01/15 Unknown Rx NEBS] Butalb/Acetaminophen/Caffeine 1 cap PO Q6HR PRN #14 cap 08/12/15 Unknown Rx [Fioricet 50-300-40 mg CAP] Amoxicillin/K Clav Tab [Augmentin 1 tab PO BID #10 tab 03/03/17 Unknown Rx 875MG TAB] Benzonatate [Tessalon Perles] 100 mg PO Q8HR #14 capsule 03/03/17 Unknown Rx Cyclobenzaprine HCl [Flexeril 5 MG 5 mg PO Q8HR PRN #15 tab 05/06/17 Unknown Rx TAB] traMADol [Ultram 50 MG tab] 50 mg PO Q6HR PRN #15 tablet 05/06/17 Unknown Rx Famotidine [Pepcid] 20 mg PO BID #20 tablet 06/05/18 Unknown Rx Tramadol HCl [Ultram] 50 mg PO BID PRN #10 tablet 07/13/18 Unknown Rx Allergies Allergy/AdvReac Type Severity Reaction Status Date / Time naproxen Allergy Unknown Verified 03/01/18 10:54 ED Review of Systems ROS: Stated complaint: LEFT SIDE PAIN/NUMBNESS Other details as noted in HPI Comment: All other systems reviewed and negative Constitutional: denies: chills, fever Eyes: denies: eye pain ENT: denies: ear pain Respiratory: denies: cough, shortness of breath Cardiovascular: denies: chest pain Endocrine: no symptoms reported Gastrointestinal: abdominal pain. denies: nausea, vomiting, diarrhea Genitourinary: denies: urgency, dysuria Musculoskeletal: denies: back pain, joint swelling Neurological: denies: headache, weakness, numbness, paresthesias Psychiatric: denies: anxiety, depression Hematological/Lymphatic: denies: easy bleeding, easy bruising ED Past Medical Hx - Past Medical History Previous Medical History?: Yes Hx Hypertension: Yes Hx Diabetes: Yes Hx Asthma: Yes (anxiety induced) Additional medical history: HPV - Surgical History Past Surgical History?: Yes Additional Surgical History: 3 c-sections; ; umbilical hernia repair - Social History Smoking Status: Former Smoker Substance Use Type: None - Medications Home Medications: Home Medications Medication Instructions Recorded Confirmed Last Taken Type Acetaminophen/Codeine [Tylenol 1 tab PO Q6H PRN #16 tab 10/31/14 08/12/15 Unknown Rx /Codeine # 3 tab] Albuterol Sulfate [Albuterol 0.63% 0.63 mg IH Q4H PRN #25 neb 08/01/15 08/12/15 Unknown Rx NEBS] Butalb/Acetaminophen/Caffeine 1 cap PO Q6HR PRN #14 cap 08/12/15 Unknown Rx [Fioricet 50-300-40 mg CAP] Amoxicillin/K Clav Tab [Augmentin 1 tab PO BID #10 tab 03/03/17 Unknown Rx 875MG TAB] Benzonatate [Tessalon Perles] 100 mg PO Q8HR #14 capsule 03/03/17 Unknown Rx Cyclobenzaprine HCl [Flexeril 5 MG 5 mg PO Q8HR PRN #15 tab 05/06/17 Unknown Rx TAB] traMADol [Ultram 50 MG tab] 50 mg PO Q6HR PRN #15 tablet 05/06/17 Unknown Rx Atenolol 100 mg PO DAILY 06/04/18 06/04/18 1 Day Ago History ~06/03/18 hydroCHLOROthiazide 25 mg PO DAILY 06/04/18 06/04/18 06/03/18 History Famotidine [Pepcid] 20 mg PO BID #20 tablet 06/05/18 Unknown Rx Tramadol HCl [Ultram] 50 mg PO BID PRN #10 tablet 07/13/18 Unknown Rx ED Physical Exam - General Limitations: No Limitations General appearance: alert, in no apparent distress - Head Head exam: Present: atraumatic, normocephalic, normal inspection - Eye Eye exam: Present: normal appearance, PERRL, EOMI Pupils: Present: normal accommodation - ENT ENT exam: Present: normal exam, normal orophraynx, mucous membranes moist - Neck Neck exam: Present: normal inspection, full ROM. Absent: tenderness - Respiratory Respiratory exam: Present: normal lung sounds bilaterally. Absent: respiratory distress, wheezes, rales, rhonchi, stridor - Cardiovascular Cardiovascular Exam: Present: regular rate, normal rhythm, normal heart sounds - GI/Abdominal GI/Abdominal exam: Present: soft, normal bowel sounds. Absent: distended, tenderness, guarding, rebound, rigid - Extremities Exam Extremities exam: Present: normal inspection, full ROM, normal capillary refill - Back Exam Back exam: Present: normal inspection, full ROM - Neurological Exam Neurological exam: Present: alert, oriented X3, CN II-XII intact - Psychiatric Psychiatric exam: Present: normal affect, normal mood - Skin Skin exam: Present: warm, dry, intact, normal color. Absent: rash ED Course Vital Signs 07/12/18 07/12/18 07/12/18 21:39 23:16 23:18 Temperature 99.4 F Pulse Rate 103 H 90 91 H Respiratory 18 19 11 L Rate Blood Pressure 176/110 141/86 141/86 Blood Pressure [Left] O2 Sat by Pulse 95 100 99 Oximetry 07/13/18 07/13/18 07/13/18 00:46 01:00 01:30 Temperature Pulse Rate 87 91 H 85 Respiratory 18 14 15 Rate Blood Pressure 127/69 127/69 126/77 Blood Pressure [Left] O2 Sat by Pulse 89 100 92 Oximetry 07/13/18 07/13/18 07/13/18 01:46 02:16 02:30 Temperature Pulse Rate 89 90 94 H Respiratory 18 20 22 Rate Blood Pressure 139/78 137/81 137/81 Blood Pressure [Left] O2 Sat by Pulse 95 95 100 Oximetry 10/08/18 10/08/18 10/08/18 03:00 04:30 05:16 Temperature Pulse Rate 89 84 81 Respiratory 18 19 17 Rate Blood Pressure 134/80 149/98 137/82 Blood Pressure [Left] O2 Sat by Pulse 97 88 97 Oximetry 07/13/18 06:31 Temperature Pulse Rate 82 Respiratory 16 Rate Blood Pressure Blood Pressure 134/82 [Left] O2 Sat by Pulse 96 Oximetry - Reevaluation(s) Reevaluation #1: 07/13/18 05:18 On reevaluation, patient abdominal pain and has currently resolved. ED Medical Decision Making - Lab Data Result diagrams: 07/12/18 22:09 07/12/18 22:09 Lab Results 07/12/18 07/12/18 07/12/18 Range/Units 22:09 22:09 23:46 WBC 2.9 L (4.5-11.0) K/mm3 RBC 4.43 (3.65-5.03) M/mm3 Hgb 12.3 (10.1-14.3) gm/dl Hct 38.0 (30.3-42.9) % MCV 86 (79-97) fl MCH 28 (28-32) pg MCHC 32 (30-34) % RDW 13.9 (13.2-15.2) % Plt Count 249 (140-440) K/mm3 Lymph % (Auto) 22.2 (13.4-35.0) % [place] % (Auto) 4.2 (0.0-7.3) % Eos % (Auto) 0.1 (0.0-4.3) % Baso % (Auto) 0.3 (0.0-1.8) % Lymph # 0.6 L (1.2-5.4) K/mm3 [place] # 0.1 (0.0-0.8) K/mm3 Eos # 0.0 (0.0-0.4) K/mm3 Baso # 0.0 (0.0-0.1) K/mm3 Seg Neutrophils % 73.2 H (40.0-70.0) % Seg Neutrophils # 2.1 (1.8-7.7) K/mm3 Sodium 138 (137-145) mmol/L Potassium 3.6 (3.6-5.0) mmol/L Chloride 99.4 (98-107) mmol/L Carbon Dioxide 28 (22-30) mmol/L Anion Gap 14 mmol/L BUN 13 (7-17) mg/dL Creatinine 1.2 (0.7-1.2) mg/dL Estimated GFR 60 ml/min BUN/Creatinine Ratio 11 % Glucose 105 H (65-100) mg/dL Calcium 9.4 (8.4-10.2) mg/dL Total Bilirubin 0.60 (0.1-1.2) mg/dL AST 58 H (5-40) units/L ALT 39 (7-56) units/L Alkaline Phosphatase 61 (35-129) units/L Total Protein 7.8 (6.3-8.2) g/dL Albumin 4.3 (3.9-5) g/dL Albumin/Globulin Ratio 1.2 % Lipase (13-60) units/L HCG, Qual (Negative) Urine Color Straw (Yellow) Urine Turbidity Clear (Clear) Urine pH 6.0 (5.0-7.0) Ur Specific [place] 1.009 (1.003-1.030) Urine Protein <15 mg/dl (Negative) mg/dL Urine Glucose (UA) Neg (Negative) mg/dL Urine Ketones Neg (Negative) mg/dL Urine Blood Neg (Negative) Urine Nitrite Neg (Negative) Ur Reducing Substances Not Reportable Urine Bilirubin Neg (Negative) Urine Ictotest Not Reportable Urine Urobilinogen < 2.0 (<2.0) mg/dL Ur Leukocyte Esterase Neg (Negative) Urine WBC (Auto) < 1.0 (0.0-6.0) /HPF Urine RBC (Auto) 1.0 (0.0-6.0) /HPF U Epithel Cells (Auto) < 1.0 (0-13.0) /HPF Urine HCG, Qual Negative (Negative) 07/13/18 07/13/18 Range/Units 00:08 00:08 WBC (4.5-11.0) K/mm3 RBC (3.65-5.03) M/mm3 Hgb (10.1-14.3) gm/dl Hct (30.3-42.9) % MCV (79-97) fl MCH (28-32) pg MCHC (30-34) % RDW (13.2-15.2) % Plt Count (140-440) K/mm3 Lymph % (Auto) (13.4-35.0) % [place] % (Auto) (0.0-7.3) % Eos % (Auto) (0.0-4.3) % Baso % (Auto) (0.0-1.8) % Lymph # (1.2-5.4) K/mm3 [place] # (0.0-0.8) K/mm3 Eos # (0.0-0.4) K/mm3 Baso # (0.0-0.1) K/mm3 Seg Neutrophils % (40.0-70.0) % Seg Neutrophils # (1.8-7.7) K/mm3 Sodium (137-145) mmol/L Potassium (3.6-5.0) mmol/L Chloride (98-107) mmol/L Carbon Dioxide (22-30) mmol/L Anion Gap mmol/L BUN (7-17) mg/dL Creatinine (0.7-1.2) mg/dL Estimated GFR ml/min BUN/Creatinine Ratio % Glucose (65-100) mg/dL Calcium (8.4-10.2) mg/dL Total Bilirubin (0.1-1.2) mg/dL AST (5-40) units/L ALT (7-56) units/L Alkaline Phosphatase (35-129) units/L Total Protein (6.3-8.2) g/dL Albumin (3.9-5) g/dL Albumin/Globulin Ratio % Lipase 25 (13-60) units/L HCG, Qual Negative (Negative) Urine Color (Yellow) Urine Turbidity (Clear) Urine pH (5.0-7.0) Ur Specific [place] (1.003-1.030) Urine Protein (Negative) mg/dL Urine Glucose (UA) (Negative) mg/dL Urine Ketones (Negative) mg/dL Urine Blood (Negative) Urine Nitrite (Negative) Ur Reducing Substances Urine Bilirubin (Negative) Urine Ictotest Urine Urobilinogen (<2.0) mg/dL Ur Leukocyte Esterase (Negative) Urine WBC (Auto) (0.0-6.0) /HPF Urine RBC (Auto) (0.0-6.0) /HPF U Epithel Cells (Auto) (0-13.0) /HPF Urine HCG, Qual (Negative) - Radiology Data Radiology results: report reviewed, image reviewed CT abdomen and pelvis is negative. - Medical Decision Making Patient will be discharged with outpatient follow up. Critical care attestation.: If time is entered above; I have spent that time in minutes in the direct care of this critically ill patient, excluding procedure time. ED Disposition Clinical Impression: Acute left flank pain Disposition: DC-01 TO HOME OR SELFCARE Is pt being admited?: No Does the pt Need Aspirin: No Condition: Stable Instructions: Abdominal Pain (ED) Additional Instructions: Follow up with your regular doctor or Dr Jennifer Diego tomorrow morning. Return to the ED if your condition worsens. Prescriptions: Tramadol HCl [Ultram] 50 mg PO BID PRN #10 tablet PRN Reason: Pain , Severe (7-10) Referrals: PRIMARY CARE, [Primary Care Provider] - 3-5 Days ТАТЬЯНА DIEGO MD [Staff Physician] - 3-5 Days Forms: Work/School Release Form(ED) Time of Disposition: 05:15
[2018-07-13 00:06] LABS: HCG Qualitative,Urine Negative (Negative)
[2018-07-13 00:10] LABS: Bilirubin,Urine NEG (Negative); Blood,Urine NEG (Negative); Color,Urine Straw (Yellow); Protein,Urine <15 mg/dL mg/dL (Negative); Urobilinogen,Urine < 2.0 mg/dL (<2.0); WBC,Urine < 1.0 /HPF (0.0-6.0)
[2018-07-13] MEDS ORDERED: DILAUDID IV ONE (04:12)
--- NOTE | 2018-07-13 04:19 | Cat Scan Report ---
FINAL REPORT EXAM: CT ABDOMEN PELVIS W CON HISTORY: abdominal pain TECHNIQUE: CT images are acquired through the Abdomen and Pelvis in late arterial and delayed phases following intravenous administration of contrast. Transaxial, coronal and sagittal reformations are provided. PRIORS: None FINDINGS: Partially visualized intrathoracic contents are remarkable for a probably benign solid appearing around 2-3 millimeter anterior right lung nodule. Cholelithiasis measures up to 14 millimeters. No pericholecystic inflammatory findings. The liver, pancreas, spleen, and adrenal glands are unremarkable. Kidneys show no worrisome lesions, hydronephrosis, or calculi. Urinary bladder is unremarkable. Anteverted uterus. Pelvic phleboliths. No free fluid in the pelvis. Small and large bowel are normal in caliber. Appendix is normal. Sigmoid diverticulosis without surrounding inflammatory findings. No free air, free fluid, or lymphadenopathy identified. Aorta is normal in course and caliber. Superficial soft tissues are remarkable for anterior abdominal wall scarring. Small fat containing umbilical hernia measuring less than 1 cm at the neck.. No acute or aggressive appearing skeletal findings. IMPRESSION: No acute findings in the abdomen and pelvis. Cholelithiasis. Consider follow-up ultrasound as clinically warranted. Sigmoid diverticulosis.
[2018-07-13 06:33] VITALS: BP 134/82
== END 2018-07-13 06:43 | disposition home or self-care (01) ==
LOC: ED 21:31
DX: R10.9 Unspecified abdominal pain (principal); R20.0 Anesthesia of skin; I10 Essential (primary) hypertension; E11.9 Type 2 diabetes mellitus without complications; J45.909 Unspecified asthma, uncomplicated; Z87.891 Personal history of nicotine dependence; Z88.8 Allergy status to other drugs, medicaments and biological substances
CPT/HCPCS: 36415; 74177; 80053; 81001; 81025; 83690; 84703; 85025; 96374; 96375; 96376; 99284; J1170; J2405; J7030; Q9967; 96361

== ENCOUNTER 2019-12-05 12:01 | Emergency (ER) | payer BC, OTHER ==
[2019-12-05 12:24] VITALS: BP 167/97
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
[2019-12-05] MEDS ORDERED: IBUPROFEN 800 MG TAB PO ONE (13:02)
[2019-12-05] MEDS ORDERED: IBUPROFEN 800 MG TAB ONE (13:03)
== END 2019-12-05 14:03 | disposition home or self-care (01) ==
LOC: ED 12:01
DX: S16.1XXA Strain of muscle, fascia and tendon at neck level, initial encounter (principal); S39.012A Strain of muscle, fascia and tendon of lower back, initial encounter; M25.519 Pain in unspecified shoulder; M79.606 Pain in leg, unspecified; I10 Essential (primary) hypertension; E11.9 Type 2 diabetes mellitus without complications; F41.9 Anxiety disorder, unspecified; Z88.6 Allergy status to analgesic agent; Z79.899 Other long term (current) drug therapy; V49.49XA Driver injured in collision with other motor vehicles in traffic accident, initial encounter; Y93.89 Activity, other specified; Y92.410 Unspecified street and highway as the place of occurrence of the external cause; Y99.8 Other external cause status
CPT/HCPCS: 99282

== ENCOUNTER 2021-08-23 16:25 | Emergency (ER) | payer SELFPAY ==
[2021-08-23] MEDS ORDERED: ASPIRIN 325 MG TAB PO ONE (16:31)
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
[2021-08-23 17:04] LABS: Basophils % (Auto) 0.6 % (0.0-1.8); Eosinophils % (Auto) 0.5 % (0.0-4.3); Hematocrit 38.6 % (30.3-42.9); Lymphocytes % (Auto) 15.6 % (13.4-35.0); Mean Corpuscular HGB Conc 31 % (30-34); Mean Corpuscular Volume 85 fl (79-97); Monocytes # (Auto) 0.4 K/mm3 (0.0-0.8); Monocytes % (Auto) 5.9 % (0.0-7.3); Platelet Count 335 K/mm3 (140-440); Red Blood Count 4.54 M/mm3 (3.65-5.03); Red Cell Distribution Width 13.5 % (13.2-15.2)
--- NOTE | 2021-08-23 17:04 | XRay Report ---
CHEST 2 VIEWS INDICATION / CLINICAL INFORMATION: Chest pain.. COMPARISON: 06/04/18 FINDINGS: SUPPORT DEVICES: None. HEART / MEDIASTINUM: No significant abnormality. LUNGS / PLEURA: No significant pulmonary or pleural abnormality. No pneumothorax. ADDITIONAL FINDINGS: No significant additional findings. IMPRESSION: 1. No acute findings. No significant change. Signer Name: Keyonna Cervantes MD Signed: 08/23/2021 5:00 PM Workstation Name: [id number]
[2021-08-23 17:28] LABS: Alanine Aminotransferase 16 units/L (7-56); Albumin 4.4 g/dL (3.9-5); BUN/Creatinine Ratio 7; Blood Urea Nitrogen 8 mg/dL (7-17); Calcium 9.5 mg/dL (8.4-10.2); Hemolysis Index 33
[2021-08-23] MEDS ORDERED: MORPHINE 4 MG/1 ML INJ IV ONE (17:28)
[2021-08-23 20:25] VITALS: BP 192/122
--- NOTE | 2021-08-24 09:04 | Electrocardiograph Report ---
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
== END 2021-08-23 20:35 | disposition home or self-care (01) ==
LOC: ED 16:25
DX: R07.9 Chest pain, unspecified (principal); I16.0 Hypertensive urgency; E11.9 Type 2 diabetes mellitus without complications; J45.909 Unspecified asthma, uncomplicated
CPT/HCPCS: 36415; 71046; 80053; 83880; 84484; 85025; 93005; 96374; 99284; J2270